=== PATIENT | female | born 1960 | race Caucasian/White ===

== ENCOUNTER 2021-04-02 12:05 | Emergency (ER) | payer OTHER ==
[2021-04-02 12:34] VITALS: TEMP 98.1; BMI 20.5
[2021-04-02] MEDS ORDERED: SODIUM CHLORIDE 0.9% 500 ML INFUS.BAG IV ONE (13:53)
[2021-04-02] MEDS ORDERED: METOCLOPRAMIDE HCL INJECTION 10 MG/2 ML VIAL IVPB ONE (13:53)
[2021-04-02] MEDS ORDERED: ACETAMINOPHEN 1000 MG/100 ML VIAL (NON FORMULARY) IVPB ONE (13:53)
[2021-04-02] MEDS ORDERED: ONDANSETRON 4 MG TABLET PO PRN (16:00)
[2021-04-02] MEDS ORDERED: ACETAMINOPHEN 500 MG TABLET (FP) PO ONE (16:00)
[2021-04-02] MEDS ORDERED: ACETAMINOPHEN 325 MG TABLET (FP) ONE (16:01)
[2021-04-02] MEDS ORDERED: ONDANSETRON *ODT* 4 MG TABLET ONE (16:01)
[2021-04-02 16:27] VITALS: BP 95/68; PULSE 68
== END 2021-04-02 16:29 | disposition home or self-care (01) ==
LOC: FER 12:05
PROC: 3E0333Z Introduction of Anti-inflammatory into Peripheral Vein, Percutaneous Approach (ICD-10-PCS; principal; 2021-04-02)
PROC: 3E033GC Introduction of Other Therapeutic Substance into Peripheral Vein, Percutaneous Approach (ICD-10-PCS; 2021-04-02)
PROC: 3E033GC Introduction of Other Therapeutic Substance into Peripheral Vein, Percutaneous Approach (ICD-10-PCS; 2021-04-02)
DX: R51.9 Headache, unspecified (principal); R11.2 Nausea with vomiting, unspecified
CPT/HCPCS: 70450-TC; 70551-TC; 99284-25

== ENCOUNTER 2022-05-03 11:12 | Emergency (ER) | payer OTHER ==
[2022-05-03 11:16] VITALS: BP 120/83; PULSE 72; RESP 17; TEMP 98.6; BMI 20.5
[2022-05-03] MEDS ORDERED: SODIUM CHLORIDE 0.9% 500 ML INFUS.BAG IV ONE (11:19)
[2022-05-03 12:00] LABS: HEMATOCRIT 39.3 % (32.4-45.2); MCH 31.3 pg (25.7-33.7); MCHC 35.6 g/dl (32.0-36.0); MEAN PLT VOLUME 8.8 fl (7.5-11.1); PLATELET COUNT 208.7 10^3/uL (134-434); RBC 4.47 10^6/uL (3.60-5.2); RDW 13.9 % (11.6-15.6); WHITE BLOOD COUNT 6.6 10^3/uL (4.0-10.8)
[2022-05-03 12:02] LABS: PLATELET ESTIMATE ADEQUATE
[2022-05-03 12:06] LABS: ALBUMIN 4.2 g/dl (3.4-5.0); BILIRUBIN,TOTAL 0.5 mg/dl (0.2-1); CALCIUM 9.6 mg/dl (8.5-10); CREATININE 0.8 mg/dl (0.55-1.3); MAGNESIUM 2.3 mg/dL (1.8-2.4); TOT PROT 7.2 g/dl (6.4-8.2)
[2022-05-03] MEDS ORDERED: KETOROLAC TROMETHAMINE 30 MG/1 ML VIAL IVPUSH ONE (12:58)
[2022-05-03] MEDS ORDERED: KETOROLAC TROMETHAMINE 15 MG/ML VIAL ONE ×2 (13:00→13:02)
== END 2022-05-03 13:24 | disposition home or self-care (01) ==
LOC: FER 11:12
PROC: 0HQ0XZZ Repair Scalp Skin, External Approach (ICD-10-PCS; principal; 2022-05-03)
PROC: 3E0333Z Introduction of Anti-inflammatory into Peripheral Vein, Percutaneous Approach (ICD-10-PCS; 2022-05-03)
DX: S01.01XA Laceration without foreign body of scalp, initial encounter (principal); W01.0XXA Fall on same level from slipping, tripping and stumbling without subsequent striking against object, initial encounter
CPT/HCPCS: 36415; 80053; 81003; 81015; 82550; 82553; 83735; 84484; 85025; 87086; 93005; 99284-25

== ENCOUNTER 2022-05-08 10:42 | Emergency (ER) | payer OTHER ==
[2022-05-08 10:53] VITALS: BP 108/73; PULSE 70; RESP 16; TEMP 98.6; BMI 20.5
== END 2022-05-08 11:11 | disposition home or self-care (01) ==
LOC: FER 10:42
DX: S01.01XA Laceration without foreign body of scalp, initial encounter (principal); Y99.9 Unspecified external cause status; Z48.02 Encounter for removal of sutures
CPT/HCPCS: 99281-25